=== PATIENT | female | born 1955 | race Caucasian/White ===

== ENCOUNTER 2016-09-24 21:17 | Emergency (ER) | payer OTHER ==
--- NOTE | ~2016-09-24 | CR142 ---
[facility]. [facility] A Service of [facility] & [facility] RADIOLOGY TEXT RESULTS PATIENT: HU BYRD LOCATION: SED : 55 UNIT #: [id number] AGE: [address]: Loraine Dow MD SEX: F ORDER DR: [id number] [place] [id number] E MR#: [id number] Acc #: [id number] NAME: HU BYRD : 1955 SEX: F STUDY DATE/TIME: 09/24/2016 21:20 UNIT: SED ROOM: STUDY DESCRIPTION: CR Hand Min 3 Views Rt Attending Physician: Loraine Dow M.D. Ordering Physician: Physician Non-Staff Primary Care Physician: Willa Gomes M.D. MEDICAL IMAGING REPORT This report is preliminary unless electronic signature is present. EXAM Right hand, 09/24 HISTORY Syncopal episode after intoxicated tonight. Fall with subsequent hand pain. FINDINGS Three views of the right hand were obtained. There is osteoarthritis in the wrist and in the distal interphalangeal joint of the second digit and in the thumb as well. Surgical clips noted in the forearm and wrist. No acute fractures are identified. IMPRESSION Osteoarthritis. No acute fracture. Dictated by... Lalo Paredes Jr., M.D. THIS IS AN ELECTRONICALLY VERIFIED REPORT Lalo Paredes Jr., M.D. at 09/25/2016 4:23 PM AZEEM/vianca TD: 09/25/2016 11:05 JOB #: [id number] MEDICAL IMAGING REPORT Page 1 of 1
--- NOTE | ~2016-09-24 | CT71 ---
[facility] A Service [facility] RADIOLOGY TEXT RESULTS PATIENT: HU BYRD LOCATION: SED : 55 UNIT #: [id number] AGE: [address]: Loraine Dow MD SEX: F ORDER DR: [id number] [address] [address] [id number] E MR#: [id number] Acc #: [id number] NAME: HU BYRD : 1955 SEX: F STUDY DATE/TIME: 09/24/2016 20:48 UNIT: SED ROOM: STUDY DESCRIPTION: CT Head Wo Contrast Attending Physician: Loraine Dow M.D. Ordering Physician: Staff Doctor Not On Primary Care Physician: Willa Gomes M.D. MEDICAL IMAGING REPORT This report is preliminary unless electronic signature is present. EXAM Head CT 09/24/2016 HISTORY Syncopal episode and fall tonight after being intoxicated. Loss of consciousness. Patient has headache since the injury. TECHNIQUE Axial images were obtained from the base to the vertex without contrast. This CT exam was performed with one or more of the following radiation dose reduction techniques: automatic exposure control, adjustment of mA and/or kV according to patient size, and iterative reconstruction. COMPARISON 01/02/2015 FINDINGS Ventricular size and configuration are within normal limits. There is no acute infarct or hemorrhage. There are no masses. There is some atherosclerotic calcifications in the carotid siphons. No skull fractures are seen. There is some soft tissue swelling over the left orbit. IMPRESSION Soft tissue swelling over the left orbit, otherwise, negative. No acute findings in the brain. No skull fracture. Dictated by... Lalo Paredes Jr., M.D. THIS IS AN ELECTRONICALLY VERIFIED REPORT [facility] A Service [facility] RADIOLOGY TEXT RESULTS PATIENT: HU BYRD LOCATION: SED : 55 UNIT #: [id number] AGE: [address]: Loraine Dow MD SEX: F ORDER DR: Lalo Paredes Jr., M.D. at 09/25/2016 4:23 PM AZEEM/joe TD: 09/25/2016 11:11 JOB #: [id number] MEDICAL IMAGING REPORT Page 1 of 1
--- NOTE | ~2016-09-24 | CT52 ---
[facility] A Service [facility] RADIOLOGY TEXT RESULTS PATIENT: HU BYRD LOCATION: SED : 55 UNIT #: [id number] AGE: [address]: Loraine Dow MD SEX: F ORDER DR: [id number] [address] [address] [id number] E MR#: [id number] Acc #: [id number] NAME: HU BYRD : 1955 SEX: F STUDY DATE/TIME: 09/24/2016 21:08 UNIT: SED ROOM: STUDY DESCRIPTION: CT Cervical Spine Wo Cont Attending Physician: Loraine Dow M.D. Ordering Physician: Staff Doctor Not On Primary Care Physician: Willa Gomes M.D. MEDICAL IMAGING REPORT This report is preliminary unless electronic signature is present. EXAM Cervical spine CT 09/24/2016 HISTORY Patient had syncopal episode while intoxicated tonight and fell with loss of consciousness. Patient now has posterior neck pain. TECHNIQUE Axial images were obtained through the cervical spine without contrast. Multiplanar reformats were obtained. This CT exam was performed with one or more of the following radiation dose reduction techniques: automatic exposure control, adjustment of mA and/or kV according to patient size, and iterative reconstruction. COMPARISON No comparison. FINDINGS There is multilevel degenerative disc disease and facet arthropathy. Findings are most severe at C4-5 and C5-6. No acute fractures. IMPRESSION Multilevel degenerative disease. No acute fracture. Dictated by... Lalo Paredes Jr., M.D. THIS IS AN ELECTRONICALLY VERIFIED REPORT Lalo Paredes Jr., M.D. at 09/25/2016 4:23 PM RLK/joe [facility] A Service [facility] RADIOLOGY TEXT RESULTS PATIENT: HU BYRD LOCATION: SED : 55 UNIT #: [id number] AGE: [address]: Loraine Dow MD SEX: F ORDER DR: TD: 09/25/2016 12:01 JOB #: [id number] MEDICAL IMAGING REPORT Page 1 of 1
--- NOTE | ~2016-09-24 | EKG ---
PATIENT: HU BYRD UNIT #: [id number] Ventricular Rate: 78 BPM Atrial Rate: 78 BPM P-R Interval: 128 ms QRS Duration: 72 ms Q-T Interval: 388 ms QTC Calculation(Bezet): 442 ms P Surprise: 51 degrees Calculated R Surprise: 57 degrees Calculated T Surprise: 67 degrees Diagnosis Line: Normal sinus rhythm Diagnosis Line: Baseline wander Otherwise normal ECG Early Diagnosis Line: repolarization Diagnosis Line: When compared with ECG of 01-JAN-2015 21:53, Diagnosis Line: No significant change was found Diagnosis Line: Confirmed by JOAQUIN TEJEDA MD ([id number]) on 09/28/2016 Diagnosis Line: 9:40:11 AM INTERPRETING MD: ILEANA BANERJEE
--- NOTE | ~2016-09-24 | CR63 ---
[facility]. [facility] A Service of [facility] & [facility] RADIOLOGY TEXT RESULTS PATIENT: HU BYRD LOCATION: SED : 55 UNIT #: [id number] AGE: [address]: Loraine Dow MD SEX: F ORDER DR: [id number] [address] [address] [id number] E MR#: [id number] Acc #: [id number] NAME: HU BYRD : 1955 SEX: F STUDY DATE/TIME: 09/24/2016 23:08 UNIT: SED ROOM: STUDY DESCRIPTION: CR Chest 2 View Attending Physician: Loraine Dow M.D. Ordering Physician: Physician Non-Staff Primary Care Physician: Willa Gomes M.D. MEDICAL IMAGING REPORT This report is preliminary unless electronic signature is present. EXAM Chest x-ray 09/24/2016. HISTORY 60-year-old female in the ED after syncopal episode and fall. Ethanol intoxication is reported. She complains of back pain and neck pain. TECHNIQUE PA and lateral upright chest series. FINDINGS The examination is negative. The lungs are expanded and clear. No visible pneumothorax, pulmonary infiltrate or pleural effusion. Heart size normal. No change since 03/30/2016. IMPRESSION Negative chest. Dictated by... Chandler Iniguez M.D. THIS IS AN ELECTRONICALLY VERIFIED REPORT Chandler Iniguez M.D. at 09/25/2016 9:42 PM ALEXANDER/angelica TD: 09/25/2016 11:46 JOB #: [id number] MEDICAL IMAGING REPORT Page 1 of 1
--- NOTE | ~2016-09-24 | CR181 ---
[facility] A Service [facility] RADIOLOGY TEXT RESULTS PATIENT: HU BYRD LOCATION: SED : 55 UNIT #: [id number] AGE: [address]: Loraine Dow MD SEX: F ORDER DR: [id number] [place] [id number] E MR#: [id number] Acc #: [id number] NAME: HU BYRD : 1955 SEX: F STUDY DATE/TIME: 09/24/2016 21:08 UNIT: SED ROOM: STUDY DESCRIPTION: CR Lumbar Spine 2 or 3 Views Attending Physician: Loraine Dow M.D. Ordering Physician: David Not Listed Primary Care Physician: Willa Gomes M.D. MEDICAL IMAGING REPORT This report is preliminary unless electronic signature is present. EXAM Lumbar spine, 09/24/2016. HISTORY Patient intoxicated and passed out and fell this evening and now has low back pain. FINDINGS 3 views of the lumbar spine were obtained. There is mild dextroscoliosis. There is multilevel degenerative disc disease, most severe at L4-L5. There is multilevel facet arthropathy, as well. No compression fractures are seen. Incidental note is made of diffuse atherosclerotic disease. IMPRESSION Multilevel degenerative disease with scoliosis. No acute fractures. Dictated by... Lalo Paredes Jr., M.D. THIS IS AN ELECTRONICALLY VERIFIED REPORT Laol Paredes Jr., M.D. at 09/25/2016 4:22 PM AZEEM/vincenzo TD: 09/25/2016 11:22 JOB #: [id number] MEDICAL IMAGING REPORT [facility] A Service [facility] RADIOLOGY TEXT RESULTS PATIENT: HU BYRD LOCATION: SED : 55 UNIT #: [id number] AGE: [address]: Loraine Dow MD SEX: F ORDER DR: Page 1 of 1
[~2016-09-24 21:17] MED LIST: DIAZEPAM PO; FOLIC ACID PO; LORTAB 10/500 T1 TAB PO; METHOTREXATE2.5 MG PO; ORENCIA 25250 MG/VIA IV; PRILOSEC40 MG PO; REMICADE IV; XELJANZ5 MG; ZANTAC PO; ZITHROMAX PO; [UNRECOGNIZED DRUG - OTHER] PO
[2016-09-24 21:20] LABS: HEMATOCRIT 33.8 % (35.0-45.0); MEAN CELL VOLUME 88.6 FL (83-96); MEAN CORPUSCULAR HGB CONC 32.7 g/dL (30-36); MEAN PLATELET VOLUME 6.6 FL (6.5-11.5); RED BLOOD COUNT 3.81 X10e (3.90-5.30); RED CELL DISTRIBUTION WIDTH 14.8 % (11.0-15.5); WHITE BLOOD COUNT 10.1 X10e3 (4.0-10.5)
[2016-09-24 21:32] LABS: POC - CKMB 1.3 ng/mL (0.0-7.9); POC - TROPONIN <0.05 ng/mL (<=0.05)
[2016-09-24 21:34] LABS: ALBUMIN SERUM 3.3 g/dL (3.5-5.0); ALKALINE PHOSPHATASE 65 U/L (32-92); ALT (SGPT) 12 U/L (10-40); AST (SGOT) 18 U/L (10-42); BILIRUBIN,TOTAL 0.2 mg/dL (0.2-2.0); BLOOD UREA NITROGEN 10 mg/dL (9-23); CALCIUM SERUM 8.4 mg/dL (8.4-10.2); CARBON DIOXIDE 23 mmol/L (22-31); CHLORIDE 95 mmol/L (100-111); CREATININE SERUM 0.5 mg/dL (0.6-1.4); GLOM FILT RATE Estimated ABOVE60 mL/min (>60); GLUCOSE FASTING 100 mg/dL (70-110); PROTEIN TOTAL SERUM 7.5 g/dL (6.0-8.3); SODIUM 130 mmol/L (135-145)
== END 2016-09-25 00:01 | disposition home or self-care (01) ==
LOC: SED 21:17
PROVIDERS: Emergency Medicine
DX: R55 Syncope and collapse (principal); F17.210 Nicotine dependence, cigarettes, uncomplicated; Z79.899 Other long term (current) drug therapy
CPT/HCPCS: 36415; 70450; 71020; 72100; 72125; 73130; 80053; 82553; 83874; 84484; 85027; 93005; 96360; 99285

== ENCOUNTER → 2016-11-20 | Outpatient (CLI) | payer OTHER ==
--- NOTE | ~2016-11-20 | US37 ---
[facility] A Service of [facility] & [facility] RADIOLOGY TEXT RESULTS PATIENT: HU BYRD LOCATION: SNIV : 55 UNIT #: [id number] AGE: [address]: Willa Gomes MD SEX: F ORDER DR: [id number] [address] [address] [id number] O MR#: [id number] Acc #: [id number] NAME: HU BYRD : 1955 SEX: F STUDY DATE/TIME: 11/20/2016 13:45 UNIT: SNIV ROOM: STUDY DESCRIPTION: US Carotid W/Doppler Bilateral Attending Physician: Willa Gomes M.D. Referring Physician: Willa Gomes M.D. Ordering Physician: Joann Cruz A.P.R.N. Primary Care Physician: Willa Gomes M.D. MEDICAL IMAGING REPORT This report is preliminary unless electronic signature is present. EXAM Bilateral carotid Doppler ultrasound HISTORY Syncope. FINDINGS The right common carotid, internal carotid and external carotid arteries are patent with mild diffuse plaque in the distal common carotid artery, carotid bulb, internal and external carotid arteries. Velocity of the common carotid artery is 73 cm/sec. Peak systolic velocity of the right proximal internal carotid artery is 91 cm/sec with an end-diastolic velocity of 19 cm/sec for a ICA:CCA ratio of 1.24. External carotid artery had a velocity of 125 cm/sec. The vertebral artery is visualized with antegrade flow. Left common carotid, internal carotid and external carotid arteries are patent without plaque or intimal thickening. Velocity of the common carotid artery is 68 cm/sec. Peak systolic velocity of the left proximal internal carotid artery is 67 cm/sec with end-diastolic velocity of 22 cm/sec for a ICA:CCA ratio of 1.0. External carotid artery had a velocity of 96 cm/sec/. The vertebral artery is visualized with antegrade flow. IMPRESSION 1. Less than 50% stenosis of the right internal carotid artery. Normal appearance of the left internal carotid artery. 2. No stenosis of the external carotid arteries. 3. Antegrade flow of the vertebral arteries. STS. [facility] A Service of [facility] & [facility] RADIOLOGY TEXT RESULTS PATIENT: HU BYRD LOCATION: SN : 55 UNIT #: [id number] AGE: [address]: Willa Gomes MD SEX: F ORDER DR: Dictated by... Obi Ram M.D. THIS IS AN ELECTRONICALLY VERIFIED REPORT Obi Ram M.D. at 11/21/2016 7:10 AM JOSE ANGEL/eligio TD: 11/20/2016 18:28 JOB #: [id number] MEDICAL IMAGING REPORT Page 1 of 1
== END | disposition home or self-care (01) ==
LOC: SNIV 11-19 15:00
DX: R55 Syncope and collapse (principal); I65.21 Occlusion and stenosis of right carotid artery
CPT/HCPCS: 93880